=== PATIENT | female | born 2000 | race Caucasian/White ===

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

== ENCOUNTER 2022-10-03 05:18 | Emergency (ER) | payer OTHER, SELFPAY ==
[2022-10-03 05:19] VITALS: BP 132/83; PULSE 98; RESP 18; TEMP 36.9; O2SAT 99; BMI 47.3
--- NOTE | 2022-10-03 05:50 | ED.ALLEREA ---
HPI - Allergic Reaction General Chief complaint: Skin/Abscess/Foreign Body Stated complaint: Rash Time Seen by Provider: 10/03/22 05:50 Source: patient Mode of arrival: ambulatory Limitations: no limitations History of Present Illness HPI narrative: Patient coming nonspecific mild erythematous rash bilateral extremity last few days no significant itchiness worried about it as it happened after cleaning cat litter box no lip or tongue swelling no shortness of breath patient never had allergic reaction in the past Related Data Previous Rx's Medication Instructions Recorded diphenhydramine HCl 25 mg capsule 50 mg PO TID PRN allergic reaction 10/03/22 (Benadryl) #30 caps miconazole nitrate 2 % topical 1 appl topical BID #85 grams 10/03/22 powder (Antifungal (miconazole)) Allergies Allergy/AdvReac Type Severity Reaction Status Date / Time No Known Allergies Allergy Verified 10/03/22 05:26 Review of Systems Review of Systems: Yes all other systems are reviewed and are negative PMFSH Social History Social History Alcohol intake: never Smoked in Last 30 Days: No Use of substances other than those prescribed or required for medical reasons: No Advance Directives: No Advance Directives Information Provided: Yes Patient : No Physical Exam ED Vital Signs: Vital Signs - 24 hr 10/03/22 05:19 Temperature 98.4 F Pulse Rate 98 Respiratory Rate 18 Blood Pressure 132/83 Pulse Oximetry 99 Oxygen Delivery Method Room Air BMI result Body Mass Index 47.3 Appearance: Alert. Oriented X3. No acute distress. Eyes: PERRLA, No Nystagmus ENT: Pharynx normal. Oral Mucosa moist no oral lesion Neck: Normal inspection. Neck supple. CVS: Normal heart rate and rhythm. Pulses normal. Respiratory: No respiratory distress. Equal air entry bilateral, no wheezing/rales/rhonchi Abdomen: Soft and nontender. Bowel sounds are present, no mass palpable, no CVA tenderness Skin: Skin warm and dry. Normal skin color. Normal skin turgor. Slight erythematous rash on left forearm Extremities: No lower extremity edema. No calf tenderness Neuro: Oriented X 3. Medications Administered Discontinued Medications Generic Name Dose Route Start Last Admin Trade Name Freq PRN Reason Stop Dose Admin Diphenhydramine HCl 50 mg 10/03/22 05:50 10/03/22 06:03 Diphenhydramine Hcl 25 Mg Capsule PO 10/03/22 05:51 50 mg ONCE ONE Administration Fluconazole 150 mg 10/03/22 05:55 10/03/22 06:03 Fluconazole 150 Mg Tablet PO 10/03/22 05:56 150 mg ONCE ONE Administration Medical Decision Making Medical Decision Making [facility] Narrative: Patient with nonspecific rash left forearm give Benadryl discharge patient home Discharge Plan Discharge Clinical Impression: Candidal intertrigo Patient Disposition: Home, Self-Care Instructions: Skin Yeast Infection (ED) Additional Instructions: Benadryl for itching/rash Anti fungal cream for armpit rash apply twice daily Follow with PCP as needed Prescriptions: New miconazole nitrate [Antifungal (miconazole)] 2 % powder 1 appl topical BID Qty: 85 0RF diphenhydramine HCl [Benadryl] 25 mg capsule 50 mg PO TID PRN (Reason: allergic reaction) Qty: 30 0RF Interventions: ED Discharge Assessment Last Done: 10/03/22 06:09 Discharge Date/Time: 10/03/22 06:09
[2022-10-03] MEDS: diphenhydrAMINE HCL 25 MG CAPSULE 50 MG PO (06:03)
[2022-10-03] MEDS: Fluconazole 150 MG TABLET PO (06:03)
== END 2022-10-03 06:09 | disposition home or self-care (01) ==
PROVIDERS: Emergency Provider Internal Medicine; PCP Pediatrics
DX: B37.2 Candidiasis of skin and nail (principal)
CPT/HCPCS: 99283; 99284

== ENCOUNTER 2023-05-21 08:13 | Outpatient (AMB) | payer OTHER, SELFPAY ==
[2023-05-21 08:31] VITALS: BP 136/100; PULSE 92; TEMP 36.8; O2SAT 97; BMI 48.4
--- NOTE | 2023-05-21 08:31 | MHC.OFFWIV ---
Intake Vital Signs 05/21/23 08:31 Height 5 ft 7 in Weight 309 lb BMI 48.4 BP 136/100 H Blood Pressure Location Lt brachial Position Sitting Pulse 92 Pulse Source Pulse Oximeter Temp 98.3 F Temp Source Temporal Artery Scan Pulse Oximetry (%) 97 Oxygen Delivery Method Room Air Intake Visit Reasons: [employer] Ear ache/sinus pressure Intake Note: pt is here today for ear ache and sinus pressure started Sunday Patient Tobacco Use Status: Never used Tobacco Allergies No Known Allergies Allergy (Verified 05/21/23 08:34) Do you need a note to return to daycare/school/sports/work: Yes HPI HPI Comments History of Present Illness Details Patient presents to the walk in for sick visit Reports 3 days of thick yellow nasal mucus, congestion and bilateral ear discomfort. Denies fever, sore throat, cough, chest pain, shortness of breath, palpitations, syncope, weakness, vomiting, diarrhea, abdominal pain Patient reports she has a history of sinus infections, feels that she has 1 now Has been taking OTC medications including dayquil with minimal improvement. Called out sick from work, requesting work note [facility] Social History Alcohol intake: never Patient Tobacco Use Status: Never used Tobacco Review of Systems Const All systems reviewed & are unremarkable except as noted in HPI and below Physical Exam Vital Signs: Last Vital Signs Temp 98.3 F 05/21/23 08:31 Pulse 92 05/21/23 08:31 BP 136/100 H 05/21/23 08:31 Pulse Ox 97 05/21/23 08:31 Oxygen Delivery Method Room Air 05/21/23 08:31 BMI result Body Mass Index 48.4 General: awake, alert, oriented. Answers questions appropriately. Fully engaged in examination. Skin: warm, dry, intact HEENT: TMs intact bilaterally, no redness. Posterior pharynx without erythema or exudate. Sclera without icterus or injection. No lymphadenopathy. Tenderness to percussion over frontal or maxillary sinuses Cardiac: External chest normal in appearance. Respiratory: LSCTAB. Abdomen: without gross distension. Neurological: Oriented to person, place, time and situation. Thought process intact. Psychiatric: Appropriate mood and affect. Good judgment and insight. Assessment & Plan Assessment & Plan (1) Sinusitis: Code(s): J32.9 - Chronic sinusitis, unspecified Plan Amoxicillin 500mg po TID X 7 days Rest, drink plenty of fluids, tylenol or motrin as needed. Follow up with pcp or in clinic for any new or worsening symptoms. Go to ER for shortness of breath, chest pain, palpitations, weakness, dizziness. Medications: New amoxicillin 500 mg PO TID 7 days 21 caps 0RF Coding Level of Care Code Est Pt Level 3 (39548) Diagnoses Sinusitis J32.9
== END 2023-05-21 09:05 | disposition home or self-care (01) ==
PROVIDERS: PCP Pediatrics; Visit Provider Registered Nurse Emergency
DX: J32.9 Chronic sinusitis, unspecified (principal)
CPT/HCPCS: 99213

== ENCOUNTER 2023-10-29 08:54 | Outpatient (AMB) | payer OTHER, SELFPAY ==
--- NOTE | 2023-10-29 09:54 | MHC.OFFWIV ---
Intake Vital Signs 10/29/23 09:55 Height 5 ft 7 in Weight 331 lb BMI 51.8 BP 122/84 Blood Pressure Location Lt brachial Position Sitting Pulse 94 Pulse Source Pulse Oximeter Temp 97.8 F Temp Source Oral Pulse Oximetry (%) 98 Oxygen Delivery Method Room Air Intake Visit Reasons: EP-sore throat, b/l ear pain Intake Note: pt c/o Sore throat and bilateral ear pain. Started Sunday night Patient Tobacco Use Status: Never used Tobacco Allergies No Known Allergies Allergy (Verified 10/29/23 10:06) Do you need a note to return to daycare/school/sports/work: Yes HPI HPI Comments History of Present Illness Details Patient presents to the walk-in stay with complaints of sore throat and bilateral ear pain for last 2 days Denies known sick contacts Pain with swallowing Tolerating p.o., denies nausea, vomiting Denies headaches, fevers, chest pain, syncope, dizziness, weakness or difficulty managing secretions PFSH Social History Alcohol intake: never Patient Tobacco Use Status: Never used Tobacco Review of Systems Const All systems reviewed & are unremarkable except as noted in HPI and below Physical Exam Vital Signs: BMI result Body Mass Index 51.8 General: awake, alert, oriented. Answers questions appropriately. Fully engaged in examination. Skin: warm, dry, intact HEENT: TMs intact bilaterally, no redness. Posterior pharynx erythematous without exudate. Moist oral mucosa. Sclera without icterus or injection. Cardiac: External chest normal in appearance. Respiratory: LSCTAB. Abdomen: without gross distension. Neurological: Oriented to person, place, time and situation. Thought process intact. Psychiatric: Appropriate mood and affect. Good judgment and insight. Results AMB Rapid Strep AMB Rapid Strep Positive Last Edit by Otis Reyes CMA on 10/29/23 10:18 Results Reviewed Results Reviewed: Rapid strep positive Assessment & Plan Assessment & Plan (1) Strep pharyngitis: Code(s): J02.0 - Streptococcal pharyngitis Plan Rapid strep positive Amoxicillin 500 mg twice daily for 10 days Work note provided Rest, drink plenty of fluids. Tylenol or Motrin as needed Discussed preventative measures including no sharing of drinks, utensils or kissing. Dispose of tooth brush every 3 days and at completion of the antibiotics. All questions and concerns were answered, patient agrees with plan Follow with primary care or return to the clinic for any new or worsening symptoms Orders: Orders SARS-CoV2/FLU/RSV Today J06.9 - Acute upper respiratory infection, unspecified AMB Rapid Strep Screen Today Z13.9 - Encounter for screening, unspecified Medications: New amoxicillin 500 mg PO BID 10 days 20 caps 0RF Coding Level of Care Code Est Pt Level 3 (41177) Diagnoses Strep pharyngitis J02.0
[2023-10-29 09:55] VITALS: BP 122/84; PULSE 94; TEMP 36.6; O2SAT 98; BMI 51.8
== END 2023-10-29 10:51 | disposition home or self-care (01) ==
PROVIDERS: PCP Pediatrics; Visit Provider Registered Nurse Emergency
DX: Z13.9 Encounter for screening, unspecified (principal); J02.0 Streptococcal pharyngitis
CPT/HCPCS: 87880; 99213

== ENCOUNTER 2023-10-29 10:13 | Outpatient (REF) | payer OTHER, SELFPAY ==
[2023-10-29 14:46] LABS: Influenza A PCR NEGATIVE (Negative); Influenza B PCR NEGATIVE (Negative); Resp Syncy Virus RNA Qual PCR NEGATIVE (Negative); SARS COV2 PCR INHOUSE NEGATIVE (Negative)
== END 2023-10-29 10:14 | disposition home or self-care (01) ==
LOC: HO.LAB 10:13
PROVIDERS: Visit Provider Registered Nurse Emergency
DX: J06.9 Acute upper respiratory infection, unspecified (principal)
CPT/HCPCS: 0241U